=== PATIENT | female | born 1955 | race Hispanic/Latino ===

== ENCOUNTER 2016-09-07 19:39 | Emergency (ER) | payer OTHER ==
[2016-09-07 19:46] VITALS: BP 162/70; PULSE 99; RESP 16; TEMP 98.4; O2SAT 100
--- NOTE | 2016-09-07 21:05 | ED PDOC ---
HPI: Female Pain Time Seen by Provider: 09/07/16 20:50 Chief Complaint (Nursing): Female Genitourinary Chief Complaint (Provider): Im having blood in my urine History Per: Patient History/Exam Limitations: no limitations, other (poor historian) Current Symptoms Are (Timing): Still Present Severity: Moderate Quality Of Discomfort: Sharp Associated Symptoms: denies: Nausea, Vomiting, Diarrhea, Loss Of Appetite Additional Complaint(s): 61yo female c/o R flank pain for several days associated with gross hematuria. Been worked up via PMD office Dr Michael Cox with CT and bloodwork as outpatient, told has a kidney stone and to come to ER but specifics unknown. She denies fever, precise location or size of stone. Given referral to Dr Suárez but not in office until monday thus came to ED. Past Medical History Reviewed: Historical Data, Nursing Documentation, Vital Signs Vital Signs: Last Vital Signs Temp 98.4 F 09/07/16 19:42 Pulse 99 H 09/07/16 19:42 Resp 16 09/07/16 19:42 BP 162/70 H 09/07/16 19:42 Pulse Ox 100 09/07/16 19:42 - Medical History PMH: Diabetes, HTN, Hypothyroidism - Family History Family History: States: Unknown Family Hx - Living Arrangements Living Arrangements: With Family - Social History Current smoker - smoking cessation education provided: No - Home Medications Home Medications: Ambulatory Orders Medication Instructions Recorded Ciprofloxacin [Cipro] 500 mg PO BID #14 tab 09/07/16 traMADol [Ultram] 50 mg PO TID PRN #12 tab 09/07/16 - Allergies Allergies/Adverse Reactions: Allergies Allergy/AdvReac Type Severity Reaction Status Date / Time No Known Allergies Allergy Verified 09/07/16 19:42 Review of Systems ROS Statement: Except As Marked, All Systems Reviewed And Found Negative Constitutional: Negative for: Fever, Chills Cardiovascular: Negative for: Chest Pain, Palpitations Gastrointestinal: Positive for: Abdominal Pain. Negative for: Nausea, Vomiting Genitourinary Female: Positive for: Dysuria, Hematuria. Negative for: Vaginal Discharge, Vaginal Bleeding, Pelvic Pain Musculoskeletal: Positive for: Back Pain. Negative for: Neck Pain, Shoulder Pain, Hand Pain, Leg Pain Physical Exam - Reviewed Nursing Documentation Reviewed: Yes Vital Signs Reviewed: Yes - Physical Exam Appears: Positive for: Well, Non-toxic, No Acute Distress Head Exam: Positive for: ATRAUMATIC, NORMAL INSPECTION, NORMOCEPHALIC Skin: Positive for: Normal Color, Warm, DRY Eye Exam: Positive for: EOMI, Normal appearance, PERRL ENT: Positive for: Normal ENT Inspection Neck: Positive for: Normal, Painless ROM Cardiovascular/Chest: Positive for: Regular Rate, Rhythm Respiratory: Positive for: CNT, Normal Breath Sounds Gastrointestinal/Abdominal: Positive for: Bowel Sounds, Soft, Tenderness (mild R sided tenderness). Negative for: Guarding Back: Positive for: Normal Inspection, R CVA Tenderness (mild) Extremity: Positive for: Normal ROM Neurologic/Psych: Positive for: Alert, Oriented. Negative for: Motor/Sensory Deficits - Laboratory Results Result Diagrams: 09/07/16 21:25 09/07/16 22:23 - ECG O2 Sat by Pulse Oximetry: 100 Medical Decision Making Medical Decision Making: attempted to call PMD Dr Gail Cox for further diagnostic history. Check bloodwork and UA. 1030p Unable to obtain outpatient diagnostics as PMD not calling back. Radiology center closed. Pt has no current pain. 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 UA reveals leuk est and WBC/RBC. WBC serum normal Remains comfortably and afebrile. 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 Can also see her as walk in on monday 1pm. Disposition - Clinical Impression Clinical Impression: Renal colic on right side, UTI (urinary tract infection) - Patient ED Disposition Is Patient to be Admitted: No Counseled Patient/Family Regarding: Studies Performed, Diagnosis, Need For Followup, Rx Given - Disposition Referrals: Malia Sevilla MD [Medical Doctor] - Disposition: Routine/Home Disposition Time: 22:35 Condition: STABLE Additional Instructions: See Dr Sevilla monday at 1pm. Take antibiotics as directed. Return to ER for any fever, worse or new symptoms. Prescriptions: Ciprofloxacin [Cipro] 500 mg PO BID #14 tab traMADol [Ultram] 50 mg PO TID PRN #12 tab PRN Reason: Pain, Moderate (4-7) Instructions: Renal Colic (ED)
[2016-09-07 21:37] LABS: BASO # 0.1 K/uL (0.0-0.2); BASO % 0.7 % (0.0-2.0); EOS # 0.2 K/uL (0.0-0.7); EOS % 1.9 % (0.0-4.0); HEMATOCRIT 35.1 % (34.0-47.0); LYMPH # 1.7 K/uL (1.0-4.3); LYMPH % 21.6 % (20.0-40.0); MEAN CELL VOLUME 75.8 fl (81.0-99.0); MEAN CORPUSCULAR HEMOGLOBIN 24.2 pg (27.0-31.0); MEAN CORPUSCULAR HGB CONC 31.9 g/dL (33.0-37.0); MEAN PLATELET VOLUME 7.1 fl (7.2-11.7); MONO # 0.4 K/uL (0.0-0.8); MONO % 5.4 % (0.0-10.0); NEUT # 5.7 K/uL (1.8-7.0); NEUT % 70.4 % (50.0-75.0); NRBC % 0.1 % (0.0-0.0); RED CELL DISTRIBUTION WIDTH 14.3 % (11.5-14.5); WHITE BLOOD COUNT 8.1 K/uL (4.8-10.8)
[2016-09-07 21:58] LABS: RBC URINE 5 /hpf (0-3); URINE BACTERIA RARE (<OCC); URINE BILIRUBIN NEGATIVE (NEGATIVE); URINE BLOOD NEGATIVE (NEGATIVE); URINE COLOR YELLOW (YELLOW); URINE GLUCOSE (UA) NEG (Normal); URINE KETONE NEGATIVE (NEGATIVE); URINE LEUKOCYTE ESTERASE LARGE Leu/uL (Negative); URINE PROTEIN 30 mg/dL (NEGATIVE); URINE UROBILINOGEN 0.2-1.0 mg/dL (0.2-1.0); WBC URINE 15 /hpf (0-5)
[2016-09-07 22:30] LABS: ALB/GLOB RATIO 1.4 (1.0-2.1); BILIRUBIN,TOTAL 0.3 mg/dl (0.2-1.3); CALCIUM 10.4 mg/dL (8.4-10.2); POTASSIUM 4.5 MMOL/L (3.6-5.0); TOTAL PROTEIN 7.9 G/DL (6.3-8.2)
[2016-09-07] MEDS ORDERED: Sodium Chloride 0.9% 1,000 ML IV STA (22:39)
== END 2016-09-08 00:32 | disposition home or self-care (01) ==
LOC: H.ER 19:39
DX: N39.0 Urinary tract infection, site not specified (principal); N23 Unspecified renal colic; E03.9 Hypothyroidism, unspecified; E11.9 Type 2 diabetes mellitus without complications; I10 Essential (primary) hypertension